=== PATIENT | male | born 2000 | race Caucasian/White ===

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

== ENCOUNTER 2020-06-24 02:20 | Outpatient (CLI) | payer BC, SELFPAY ==
[2020-06-26 09:40] LABS: COVID-19 RT-PCR Result NEGATIVE (Negative)
== END 2020-06-24 02:40 ==
PROVIDERS: PCP Pediatrics; Visit Provider Pediatrics
DX: Z20.828 Contact with and (suspected) exposure to other viral communicable diseases (principal)
CPT/HCPCS: U0003